=== PATIENT | female | born 1970 | race Caucasian/White ===

== ENCOUNTER 2020-09-01 11:02 | Outpatient (REF) | payer OTHER, SELFPAY ==
[2020-09-01 13:58] LABS: Hematocrit 43.5 % (37-47); Hemoglobin 14.4 g/dl (12.0-16.0); Mean Corpuscular HGB Conc 33.1 g/dl (31.0-35.0); Mean Corpuscular Hemoglobin 29.1 pg (27.0-33.0); Mean Corpuscular Volume 87.9 fL (80-98); Mean Platelet Volume 10.6 fL (9.4-12.3); Platelet Count 226 X10*3/uL (160-400); Red Blood Count 4.95 X10*6/uL (4.20-5.50); Red Cell Distribution Width 13.4 % (11.0-16.0); White Blood Count 8.1 X10*3/uL (4.8-10.8)
[2020-09-01 14:10] LABS: Estimated Average Glucose 140 mg/dL; Hemoglobin A1c % 6.5 %
[2020-09-01 14:46] LABS: Alanine Aminotransferase 37 U/L (0-31); Albumin Level 4.2 g/dL (3.5-5.0); Alkaline Phosphatase 82 U/L (39-117); Anion Gap 14 (12-20); Aspartate Amino Transferase 25 U/L (5-31); Bilirubin Total 0.5 mg/dL (0.0-1.0); Blood Urea Nitrogen 15 mg/dL (9-16); Calcium 8.4 mg/dL (8.4-10.2); Carbon Dioxide 26 mmol/L (22-29); Chloride 102 mmol/L (96-108); Cholesterol 195 mg/dL; Estimated Glomerular Filt Rate > 60; Glucose Fasting 97 mg/dL (60-99); HDL Cholesterol 54 mg/dL; LDL Cholesterol Calculated 112 mg/dl; Potassium 4.5 mmol/l (3.3-5.1); Sodium 137 mmol/L (135-145); Total Protein 6.9 g/dL (6.5-8.0); Triglycerides 145 mg/dL
== END 2020-09-01 11:03 | disposition home or self-care (01) ==
LOC: HO.HMGCLDS 11:02
PROVIDERS: PCP Internal Medicine; Visit Provider Internal Medicine
DX: O24.419 Gestational diabetes mellitus in pregnancy, unspecified control (principal); E03.9 Hypothyroidism, unspecified; I48.91 Unspecified atrial fibrillation; I10 Essential (primary) hypertension
CPT/HCPCS: 36415; 80053; 80061; 83036; 84443; 85027

== ENCOUNTER 2020-10-27 12:33 | Outpatient (REF) | payer OTHER, SELFPAY ==
--- NOTE | 2020-10-27 12:40 | XR_ITS ---
EXAMINATION: XR KNEE AP STANDING CLINICAL INFORMATION: Bilateral knee pain. COMPARISON: None TECHNIQUE: Bilateral AP standing and lateral radiographs of the knees. FINDINGS: Left knee: Moderate-marked medial compartment joint space narrowing is noted along with mild subchondral sclerosis of the medial tibial plateau. Lateral compartment demonstrates normal joint spacing and alignment. No arthropathic changes of the patellofemoral compartment identified. No joint effusion visualized. No dystrophic calcifications. Right knee: The medial Mild medial compartment osteoarthritis. Compartment demonstrates mild joint space narrowing with mild subchondral sclerosis of the medial femoral condyle. Lateral compartment demonstrates no arthropathic changes. Patellofemoral compartment exhibits no arthropathic changes. No joint effusion is visualized. No dystrophic calcifications identified. XR/XR knee standing BI IMPRESSION: Left knee: Moderate-marked medial compartment osteoarthritis. Right knee: Mild medial compartment osteoarthritis.
[2020-10-27 14:23] LABS: Hemoglobin 14.4 g/dl (12.0-16.0); Mean Corpuscular HGB Conc 32.7 g/dl (31.0-35.0); Mean Corpuscular Hemoglobin 29.1 pg (27.0-33.0); Mean Corpuscular Volume 89.1 fL (80-98); Mean Platelet Volume 10.5 fL (9.4-12.3); Platelet Count 261 X10*3/uL (160-400); Red Blood Count 4.94 X10*6/uL (4.20-5.50); Red Cell Distribution Width 13.2 % (11.0-16.0)
[2020-10-27 14:48] LABS: Alanine Aminotransferase 37 U/L (0-31); Albumin Level 4.5 g/dL (3.5-5.0); Alkaline Phosphatase 77 U/L (39-117); Anion Gap 12 (12-20); Aspartate Amino Transferase 20 U/L (5-31); Bilirubin Total 0.4 mg/dL (0.0-1.0); Blood Urea Nitrogen 20 mg/dL (9-16); C Reactive Protein 0.64 mg/dL (< or = 0.50); Carbon Dioxide 29 mmol/L (22-29); Chloride 102 mmol/L (96-108); Estimated Glomerular Filt Rate > 60; Glucose Random 115 mg/dL (60-115); Potassium 4.7 mmol/l (3.3-5.1); Sodium 138 mmol/L (135-145); Total Protein 7.3 g/dL (6.5-8.0)
[2020-10-27 14:58] LABS: Rheumatoid Factor < 15.0 IU/mL (<15.0)
[2020-10-27 15:15] LABS: Erythrocyte Sedimentation Rate 13 MM/HR (0-20)
[2020-10-28 18:22] LABS: Lyme Abs Screen <0.90 index
[2020-10-28 21:12] LABS: Cyclic Citrullinated Peptide <16 UNITS
== END 2020-10-27 12:34 | disposition home or self-care (01) ==
LOC: HO.HMGCX 12:33
PROVIDERS: PCP Internal Medicine; Visit Provider Internal Medicine
DX: I10 Essential (primary) hypertension (principal); M25.562 Pain in left knee; M25.561 Pain in right knee
CPT/HCPCS: 36415; 73565; 80053; 82550; 85027; 85652; 86140; 86200; 86431; 86618

== ENCOUNTER → 2021-01-17 07:53 | Outpatient (BNVA) | payer OTHER, SELFPAY | PROVIDERS: Visit Provider Student in an Organized Health Care Education/Training Program ==

== ENCOUNTER 2021-01-19 15:42 | Outpatient (REF) | payer OTHER, SELFPAY ==
--- NOTE | ~2021-01-19 | MR_ITS ---
EXAMINATION: MR KNEE WITHOUT CONTRAST, RIGHT CLINICAL INFORMATION: Bilateral primary osteoarthritis of the knee. COMPARISON: X-ray the right knee October 2020 TECHNIQUE: MRI of the knee without contrast was performed using routine sequences on a high-field scanner. FINDINGS: MENISCI: Medial Meniscus: There is irregular abnormal signal extending from the femoral to the tibial articular surface of the posterior horn the medial meniscus indicative of a vertical radial tear. Lateral Meniscus: Intact LIGAMENTS: Cruciate: Intact Collateral: Medial collateral ligament: There is abnormal increased signal and thickening of the medial collateral ligament beginning at the femoral attachment, extending to the joint line indicative of a partial tearing. There is edema surrounding the ligament. No ligament retraction. Lateral ligaments intact. EXTENSOR MECHANISM: Intact ARTICULAR CARTILAGE/BONE: Patellofemoral Compartment: Normal Medial Compartment: There is some minimal cartilage heterogeneity in the posterior weightbearing portion of the compartment on the femoral side of the joint. Overall mild arthrosis. Lateral Compartment: Normal Proximal tibiofibular joint: There is subchondral cystic change on the tibial side of the proximal tibiofibular joint indicative of mild arthrosis. JOINT FLUID AND BURSAE: There is a mild effusion of the knee joint with small García's cyst and mild synovitis. MR/MR knee RT wo con IMPRESSION: Tear of the medial meniscus posterior horn. Joint effusion and mild synovitis. Mild osteoarthritis.
== END 2021-01-19 15:43 | disposition home or self-care (01) ==
LOC: HO.MRI 15:42
PROVIDERS: Visit Provider Student in an Organized Health Care Education/Training Program
DX: M25.561 Pain in right knee (principal); M17.0 Bilateral primary osteoarthritis of knee
CPT/HCPCS: 73721

== ENCOUNTER → 2021-02-07 07:53 | Outpatient (BNVA) | payer OTHER, SELFPAY | PROVIDERS: PCP Internal Medicine; Visit Provider Student in an Organized Health Care Education/Training Program ==

== ENCOUNTER 2021-03-30 11:38 | Outpatient (REF) | payer OTHER, SELFPAY ==
[2021-03-30 14:42] LABS: Estimated Average Glucose 120 mg/dL; Hemoglobin A1c % 5.8 %
[2021-03-30 14:55] LABS: Alanine Aminotransferase 25 U/L (0-31); Albumin Level 4.1 g/dL (3.5-5.0); Alkaline Phosphatase 81 U/L (39-117); Anion Gap 10 (12-20); Aspartate Amino Transferase 18 U/L (5-31); Bilirubin Total 0.5 mg/dL (0.0-1.0); Blood Urea Nitrogen 13 mg/dL (9-16); Calcium 8.8 mg/dL (8.4-10.2); Carbon Dioxide 28 mmol/L (22-29); Chloride 104 mmol/L (96-108); Cholesterol 204 mg/dL; Estimated Glomerular Filt Rate > 60; Glucose Fasting 98 mg/dL (60-99); HDL Cholesterol 58 mg/dL; LDL Cholesterol Calculated 115 mg/dl; Potassium 4.4 mmol/L (3.3-5.1); Sodium 138 mmol/L (135-145); Total Protein 6.7 g/dL (6.5-8.0); Triglycerides 159 mg/dL
[2021-03-30 15:20] LABS: TSH reflex Free T4 0.77 uIU/mL (0.32-4.0)
[2021-03-30 15:25] LABS: Creatinine Urine 76.19 mg/dL; Microalbum/Creatinine Ratio Ur 325.5 ug/mg cr
== END 2021-03-30 11:39 | disposition home or self-care (01) ==
LOC: HO.HMGCLDS 11:38
PROVIDERS: PCP Internal Medicine; Visit Provider Internal Medicine
DX: E03.9 Hypothyroidism, unspecified (principal); E78.5 Hyperlipidemia, unspecified; R73.9 Hyperglycemia, unspecified
CPT/HCPCS: 36415; 80053; 80061; 82043; 83036; 83735; 84443

== ENCOUNTER 2021-10-10 11:24 | Outpatient (REF) | payer OTHER, SELFPAY ==
--- NOTE | ~2021-10-10 | XR_ITS ---
EXAMINATION: XR SACROILIAC JOINTS XR HIP BILATERAL WITH PELVIS CLINICAL INFORMATION: Spondylosis without myelopathy or radiculopathy. COMPARISON: None TECHNIQUE: AP and bilateral Judet views of the sacroiliac joints. AP view of the pelvis as well as AP and frog-leg lateral views of the right and left hips. FINDINGS: SACROILIAC JOINTS: No acute fracture or dislocation. No significant joint space narrowing. Minimal bilateral sacroiliac joint subchondral sclerosis with small inferior marginal osteophytes. No osseous erosion. Multiple surgical coils overlying the anterior pelvis consistent with hernia repair. BILATERAL HIPS AND PELVIS: No acute fracture or dislocation. No significant hip joint space narrowing or marginal osteophytes. No osseous erosion. Mild subchondral sclerosis and small marginal osteophytes at the symphysis pubis. Surgical coils overlying the pelvis. XR/XR sacroiliac joint min 3V IMPRESSION: Sacroiliac Joints: Mild bilateral sacroiliac joint osteoarthritis. No associated osseous erosion. Bilateral Hips and Pelvis: Mild osteoarthritis at the symphysis pubis.
--- NOTE | ~2021-10-10 | XR_ITS ---
EXAMINATION: XR SACROILIAC JOINTS XR HIP BILATERAL WITH PELVIS CLINICAL INFORMATION: Spondylosis without myelopathy or radiculopathy. COMPARISON: None TECHNIQUE: AP and bilateral Judet views of the sacroiliac joints. AP view of the pelvis as well as AP and frog-leg lateral views of the right and left hips. FINDINGS: SACROILIAC JOINTS: No acute fracture or dislocation. No significant joint space narrowing. Minimal bilateral sacroiliac joint subchondral sclerosis with small inferior marginal osteophytes. No osseous erosion. Multiple surgical coils overlying the anterior pelvis consistent with hernia repair. BILATERAL HIPS AND PELVIS: No acute fracture or dislocation. No significant hip joint space narrowing or marginal osteophytes. No osseous erosion. Mild subchondral sclerosis and small marginal osteophytes at the symphysis pubis. Surgical coils overlying the pelvis. XR/XR hip BI w [id number] IMPRESSION: Sacroiliac Joints: Mild bilateral sacroiliac joint osteoarthritis. No associated osseous erosion. Bilateral Hips and Pelvis: Mild osteoarthritis at the symphysis pubis.
== END 2021-10-10 11:25 | disposition home or self-care (01) ==
LOC: HO.HMGCX 11:24
PROVIDERS: PCP Internal Medicine; Visit Provider Internal Medicine
DX: M47.818 Spondylosis without myelopathy or radiculopathy, sacral and sacrococcygeal region (principal)
CPT/HCPCS: 72202; 73521

== ENCOUNTER 2021-10-19 15:23 | Outpatient (REF) | payer OTHER, SELFPAY ==
--- NOTE | ~2021-10-19 | MR_ITS ---
EXAMINATION: MR LUMBAR SPINE WITHOUT CONTRAST CLINICAL INFORMATION: Low back pain. COMPARISON: No relevant prior imaging. TECHNIQUE: MRI of the lumbar spine was obtained using routine sequences without contrast. FINDINGS: There is slight grade 1 anterolisthesis of L4 on L5 that appears to be related to facet degenerative changes at this level. Alignment is otherwise normal. Vertebral heights are preserved. There is disc desiccation at multiple levels without substantial loss of intervertebral disc height. The tip of the conus medullaris is located at L1. No mass effect on the conus. Visualized distal cord signal intensity is normal. At L1-L2 the annular contour is normal. No canal or neuroforaminal compromise. At L2-L3 there is a left far lateral annular fissure associated with an asymmetrically bulging disc to the left. No canal stenosis. No mass effect on the traversing or foraminal nerve root. At L3-L4 the annular contour is normal. Bilateral facet degenerative change. No canal stenosis. No mass effect on the traversing or foraminal nerve roots. At L4-L5 there is a pseudodisc bulge. Bilateral facet degenerative change. No canal stenosis. No mass effect on the traversing or foraminal nerve roots. At L5-S1 the annular contour is normal. Bilateral facet degenerative change. No canal or neuroforaminal compromise. There are a few Tarlov cysts visualized within the sacrum at the level of S2. Limited visualization of the retroperitoneal anatomy reveals no abnormal finding. Psoas and paraspinal muscle groups are symmetric. MR/MR lumbar spine wo con IMPRESSION: There is mild disc degeneration at multiple levels. Slight grade 1 anterolisthesis of L4 on L5 related to facet degenerative changes at this level. Otherwise unremarkable examination. No canal stenosis. No mass effect on the traversing or foraminal nerve roots.
== END 2021-10-19 15:24 | disposition home or self-care (01) ==
LOC: HO.MRI 15:23
PROVIDERS: PCP Internal Medicine; Visit Provider Internal Medicine
DX: M54.50 Low back pain, unspecified (principal)
CPT/HCPCS: 72148

== ENCOUNTER 2022-05-10 10:59 | Outpatient (REF) | payer OTHER, SELFPAY ==
[2022-05-10 14:03] LABS: Alanine Aminotransferase 30 U/L (0-31); Albumin Level 4.2 g/dL (3.5-5.0); Alkaline Phosphatase 68 U/L (39-117); Anion Gap 12 (12-20); Aspartate Amino Transferase 19 U/L (5-31); Bilirubin Total 0.5 mg/dL (0.0-1.0); Blood Urea Nitrogen 16 mg/dL (9-16); Calcium 8.7 mg/dL (8.4-10.2); Carbon Dioxide 25 mmol/L (22-29); Chloride 107 mmol/L (96-108); Estimated Glomerular Filt Rate > 60; Glucose Fasting 108 mg/dL (60-99); Potassium 4.5 mmol/L (3.3-5.1); Sodium 139 mmol/L (135-145); Total Protein 6.9 g/dL (6.5-8.0)
[2022-05-10 14:10] LABS: Estimated Average Glucose 117 mg/dL; Hemoglobin A1c % 5.7 %
== END 2022-05-10 11:00 | disposition home or self-care (01) ==
LOC: HO.HMGCLDS 10:59
PROVIDERS: PCP Internal Medicine; Visit Provider Internal Medicine
DX: E11.9 Type 2 diabetes mellitus without complications (principal); E78.5 Hyperlipidemia, unspecified
CPT/HCPCS: 36415; 80053; 83036

== ENCOUNTER 2022-09-24 09:23 | Outpatient (REF) | payer OTHER, SELFPAY ==
--- NOTE | ~2022-09-24 | US_ITS ---
EXAMINATION: US ABDOMEN COMPLETE CLINICAL INFORMATION: Hepatosplenomegaly.. COMPARISON: None TECHNIQUE: Real-time imaging of the abdominal viscera. FINDINGS: PANCREAS: Head and body appear unremarkable. Tail not visualized. ABDOMINAL AORTA: The proximal, mid, and distal segments are normal in caliber. INFERIOR VENA CAVA: Visualized portions are normal. LIVER: Diffusely echogenic. The technologist does not formally measure the liver. The liver probably measures approximately 24 cm in sagittal dimension (image 29). The liver contour appears unremarkable. 1.8 x 1.5 x 1.3 cm benign-appearing left hepatic cyst containing a thin internal septation. 6.3 x 4.6 x 3.3 cm benign right simple hepatic cyst. No suspicious focal hepatic lesion. No intrahepatic biliary duct dilatation is seen. GALLBLADDER: The gallbladder is physiologically distended without evidence of stones, sludge, polyps, wall thickening or pericholecystic fluid. Technologist reports negative sonographic Henry's sign. COMMON BILE DUCT: Normal in caliber measuring 0.4 cm in diameter. RIGHT KIDNEY: No hydronephrosis. No renal calculi or focal parenchymal lesions. The kidney measures 12.5 cm in maximum dimension. LEFT KIDNEY: No hydronephrosis. No renal calculi or focal parenchymal lesions. The kidney measures 12.3 cm in maximum dimension. SPLEEN: The spleen measures 11.2 cm in maximum dimension. FREE FLUID: None. US/US abdomen complete IMPRESSION: Suspect hepatomegaly. Fatty infiltration of liver. Benign hepatic cysts.
== END 2022-09-24 09:24 | disposition home or self-care (01) ==
LOC: HO.US 09:23
PROVIDERS: Visit Provider Internal Medicine
DX: R16.0 Hepatomegaly, not elsewhere classified (principal)
CPT/HCPCS: 76700

== ENCOUNTER 2022-11-29 11:50 | Outpatient (REF) | payer OTHER, SELFPAY ==
[2022-11-29 13:58] LABS: Appearance Urine Clear; Color Urine Yellow; Glucose Urine UA Negative (Negative); Leukocyte Esterase Urine Negative (Negative); Nitrite Urine Negative (Negative); PH 6.5 (5.0-9.0); Urine Blood Negative (Negative); Urine Ketones Negative (Negative); Urine Protein Trace mg/dL (Neg-Trace)
[2022-11-29 14:03] LABS: Bacteria Urine None Seen (None Seen); Hyaline Casts Urine 0-2 /LPF (0-2); RBC Urine 0-2 /HPF (0-2); WBC Urine 0-5 /HPF (0-5)
[2022-11-29 14:40] LABS: TSH reflex Free T4 1.28 uIU/mL (0.32-4.0); Vitamin D 25-OH Total 35.6 ng/mL (>30)
== END 2022-11-29 11:51 | disposition home or self-care (01) ==
LOC: HO.HMGCLDS 11:50
PROVIDERS: PCP Internal Medicine; Visit Provider Internal Medicine
DX: R73.9 Hyperglycemia, unspecified (principal); R80.9 Proteinuria, unspecified; E03.9 Hypothyroidism, unspecified
CPT/HCPCS: 36415; 81001; 82306; 84443